=== PATIENT | male | born 1950 | race Caucasian/White ===

== ENCOUNTER → 2019-01-01 | Outpatient (CLI) | payer OTHER ==
--- NOTE | 2019-01-01 11:56 | DIREP ---
PROCEDURE:US AORTA COMPLETE STUDY COMPARISON:None. INDICATIONS:AAA, HTN TECHNIQUE:Grayscale ultrasound was performed of the abdominal aorta. Spectral analysis and color-flow are also performed. FINDINGS: PROXIMAL AORTIC DIAMETER (cm):1.7 x 1.8 cm26.5 cm/s MID-AORTIC DIAMETER (cm):1.8 x 1.6 cm47.2 cm/s DISTAL AORTIC DIAMTER (cm):1.3 x 1.4 cm23.9 cm/s RIGHT COMMON ILIAC DIAMETER (cm):1.2 x 1.0 cm42.3 cm/s LEFT COMMON ILIAC DIAMETER (cm):1.1 x 1.0 cm25.7 cm/s CONCLUSION: 1. Normal tapering of the aorta. 2. No visualized iliac aneurysm Dictated by: NGUYEN Physician on 01/01/2019 at 11:31 AM ld
== END | disposition home or self-care (01) ==
LOC: RAD 10:42
PROVIDERS: ATTEND Internal Medicine Geriatric Medicine
DX: I71.4 Abdominal aortic aneurysm, without rupture (principal); I10 Essential (primary) hypertension
CPT/HCPCS: 76770